=== PATIENT | female | born 1990 | race Two or more races ===

== ENCOUNTER 2025-04-25 13:58 | Emergency (ER) | payer MEDICAID ==
[~2025-04-25] VITALS: Ht 154.9 cm; Wt 65.1 kg
[2025-04-25 14:10] VITALS: BP 104/64; PULSE 116; RESP 16; TEMP 100.9; O2SAT 95
== END 2025-04-25 15:51 | disposition left against medical advice (07) ==
LOC: ER 13:58
DX: R10.9 Unspecified abdominal pain (principal); Z53.21 Procedure and treatment not carried out due to patient leaving prior to being seen by health care provider